=== PATIENT | male | born 1960 | race Caucasian/White ===

== ENCOUNTER 2017-10-04 12:09 | Emergency (ER) | payer SELFPAY ==
[~2017-10-04] VITALS: Ht 193 cm; Wt 108.9 kg
[~2017-10-04 12:09] MED LIST: OMEPRAZOLE20 M1 PO
--- OUTSIDE RECORDS SUMMARY | 2017-10-04 12:13 | XMS REPORT | Clinical Summary ---
Author Author [facility] Organization [facility] Address Unknown Phone Unavailable Care Team Providers [employer] Name Role Phone Asked, Pcp PCP Unavailable Allergies Active Allergy Reactions Severity Noted Date Comments Iodinated Contrast- Oral And Iv Dye Iodine 05/16/2016 Current Medications Prescription Sig. Disp. Refills Start End Date Status Date aspirin (ECOTRIN) 81 MG Take 1 tablet twice a day Active enteric coated tablet by oral route. omeprazole (PriLOSEC) 20 Take 20 mg by mouth 2 Active MG capsule (two) times a day. NORCO 10-325 mg per Take 1 tablet by mouth 4 120 tablet 08/14/1912/27 Active tablet (four) times a day for 90 18 18 days. Max Daily Amount: 4 tablets carisoprodol (SOMA) 350 Take 1 tablet (350 mg 90 tablet 1 09/27/19 12/26/19 Active MG tablet total) by mouth 3 (three) 18 18 times a day for 90 days. carisoprodol (SOMA) 350 Take 1 tablet (350 mg 90 tablet 2 08/16/19 11/16/19 Discontin MG tablet total) by mouth 3 (three) 17 17 ued times a day for 90 days. NORCO 10-325 mg per Take 1 tablet by mouth 4 08/16/19 11/16/19 Discontin tablet (four) times a day for 90 17 17 ued days. Max Daily Amount: 4 tablets lisinopril Take 1 tablet (40 mg 90 tablet 1 08/16/19 02/13/20 (PRINIVIL,ZESTRIL) 40 mg total) by mouth daily for 17 17 tablet 180 days. carisoprodol (SOMA) 350 Take 1 tablet (350 mg 90 tablet 2 11/16/19 02/15/20 Discontin MG tablet total) by mouth 3 (three) 17 17 ued times a day for 90 days. NORCO 10-325 mg per Take 1 tablet by mouth 4 11/16/19 02/15/20 Discontin tablet (four) times a day for 90 17 17 ued days. Max Daily Amount: 4 tablets carisoprodol (SOMA) 350 Take 1 tablet (350 mg 90 tablet 2 02/15/20 05/15/20 Discontin MG tablet total) by mouth 3 (three) 17 17 ued times a day for 90 days. NORCO 10-325 mg per Take 1 tablet by mouth 4 02/15/20 05/15/20 Discontin tablet (four) times a day for 90 17 17 ued days. Max Daily Amount: 4 tablets carisoprodol (SOMA) 350 Take 1 tablet (350 mg 90 tablet 2 05/15/20 08/14/19 Discontin MG tablet total) by mouth 3 (three) 17 18 ued times a day for 90 days. NORCO 10-325 mg per Take 1 tablet by mouth 4 120 tablet 05/15/2011/26 Discontin tablet (four) times a day for 90 17 18 ued days. Max Daily Amount: 4 tablets carisoprodol (SOMA) 350 Take 1 tablet (350 mg 90 tablet 2 08/14/19 09/27/19 Discontin MG tablet total) by mouth 3 (three) 18 18 ued times a day for 90 days. Active Problems Problem Noted Date Back pain 02/14/2017 Myalgia 02/14/2017 Lumbar disc disease 02/14/2017 Chronic cervical radiculopathy 02/14/2017 Chronic low back pain 05/16/2016 Cervicalgia 05/16/2016 Lumbar radicular pain 05/16/2016 Muscle spasm 05/16/2016 Encounters Date Type Specialty Care Team Description 09/26/2017 Refill Physical Medicine and Dolly Thrasher Muscle spasm (Primary Dx) Rehabilitation RN 09/12/2017 Telephone Physical Medicine and Milady Benitez MA Rehabilitation 08/14/2017 Office Visit Physical Medicine and Rico Ames MD Chronic low back pain, Rehabilitation unspecified back pain laterality, with sciatica presence unspecified (Primary Dx); Cervicalgia; Lumbar radicular pain; Back pain, unspecified back location, unspecified back pain laterality, unspecified chronicity; Myalgia; Chronic cervical radiculopathy; Muscle spasm; Lumbar disc disease 05/15/2017 Office Visit Physical Medicine and Rico Ames MD Back pain, unspecified Rehabilitation back location, unspecified back pain laterality, unspecified chronicity (Primary Dx); Cervicalgia; Lumbar radicular pain; Myalgia; Chronic cervical radiculopathy; Muscle spasm; Lumbar disc disease 05/02/2017 Telephone Physical Medicine and Jackie Dickens RNstraightedge man 02/14/2017 Office Visit Physical Medicine and Rico Ames MD Back pain, unspecified Rehabilitation back location, unspecified back pain laterality, unspecified chronicity (Primary Dx); Myalgia; Lumbar disc disease; Chronic cervical radiculopathy; Lumbar radicular pain 11/15/2016 Office Visit Physical Medicine and Rico Ames MD Back pain, unspecified Rehabilitation back location, unspecified back pain laterality, unspecified chronicity (Primary Dx); Cervicalgia; Lumbar radicular pain; Muscle spasm after 10/03/2016 Social History Tobacco Use Types Packs/Day Years Used Date Never Smoker Smokeless Tobacco: Never Used Sex Assigned at Date Recorded Not on file Last Filed Vital Signs Vital Sign Reading Time Taken Blood Pressure 164/108 08/14/2017 10:13 AM [employer] Pulse 69 08/14/2017 10:13 AM [employer] Temperature - - Respiratory Rate - - Oxygen Saturation - - Inhaled Oxygen - - Concentration Weight - - Height - - Body Mass Index - - Plan of Treatment Date Type Specialty Care Team Description 11/09/2017 Office Visit Physical Medicine and Rico Ames MD Rehabilitation [address] [place] [id number] Health Maintenance Due Date Last Done Comments COLONOSCOPY 10/05/2011 INFLUENZA VACCINE 02/07/2017 Results * Drug Screen (08/14/2017) Only the most recent of 4 results within the time period is included. after 10/03/2016
[2017-10-04 12:53] VITALS: BP 182/92
== END 2017-10-04 13:02 | disposition home or self-care (01) ==
LOC: ER 12:09
DX: R10.31 Right lower quadrant pain (principal); R10.32 Left lower quadrant pain; K40.91 Unilateral inguinal hernia, without obstruction or gangrene, recurrent
CPT/HCPCS: 99283

== ENCOUNTER 2020-05-05 19:05 | Emergency (ER) | payer MEDICARE ==
[~2020-05-05] VITALS: Ht 193 cm; Wt 108.9 kg
== END 2020-05-05 20:51 | disposition home or self-care (01) ==
LOC: ER 19:13
DX: Z20.828 Contact with and (suspected) exposure to other viral communicable diseases (principal); R50.9 Fever, unspecified; J02.9 Acute pharyngitis, unspecified; R53.83 Other fatigue
CPT/HCPCS: 99282